=== PATIENT | female | born 1945 | race Caucasian/White ===

== ENCOUNTER → 2017-03-05 | Outpatient (CLI) | payer MEDICARE, MEDICAID ==
[~2017-03-05] MED LIST: ALBU18HF INH; ALEN70TA5 PO; ASPI-496 PO; ASPI-621 PO; ATOR40TA PO; ATOR40TA78 PO; CARV3.1212 PO; CARV3.122 PO; CIPR500T87 PO; HYDR-3240 PO; LEVO100T PO; LEVO100T5 PO; LEVO75TA5 PO; LOSA25TA5 PO; METR500T PO; OMNIPAQUE 350 MG/ML, 100ML BOTTLE ONE; OXYC-302 PO; PHEN-418 PO; SULF1TAB3 PO; TICA90TA PO; TRAM-28 PO
== END | disposition home or self-care (01) ==
LOC: CFH 13:16
PROVIDERS: ATTEND Urology
DX: C67.9 Malignant neoplasm of bladder, unspecified (principal); R31.0 Gross hematuria; D18.09 Hemangioma of other sites; R91.1 Solitary pulmonary nodule
CPT/HCPCS: 74177; Q9967

== ENCOUNTER → 2017-06-23 | Outpatient (CLI) | payer MEDICARE, MEDICAID ==
[2017-06-23 12:35] LABS: BLOOD UREA NITROGEN 19 mg/dL (7-18)
[2017-06-23 12:40] LABS: ASPARTATE AMINO TRANSFERASE 81 U/L (15-37)
== END | disposition home or self-care (01) ==
LOC: CFH 11:31
PROVIDERS: ATTEND Urology
DX: C67.8 Malignant neoplasm of overlapping sites of bladder (principal); C77.9 Secondary and unspecified malignant neoplasm of lymph node, unspecified; D18.03 Hemangioma of intra-abdominal structures; K86.1 Other chronic pancreatitis; R91.1 Solitary pulmonary nodule; J84.10 Pulmonary fibrosis, unspecified; Z90.49 Acquired absence of other specified parts of digestive tract
CPT/HCPCS: 36415; 71260; 74177; 80053; 82565; 85025; Q9967

== ENCOUNTER → 2017-07-14 | Outpatient (CLI) | payer MEDICARE, MEDICAID ==
[~2017-07-14] MED LIST changes: -OMNIPAQUE 350 MG/ML, 100ML BOTTLE ONE
== END | disposition home or self-care (01) ==
LOC: LAB 00:32
PROVIDERS: ATTEND Family Medicine
DX: E03.9 Hypothyroidism, unspecified (principal)
CPT/HCPCS: 36415; 84443

== ENCOUNTER → 2018-01-14 | Outpatient (CLI) | payer MEDICARE, MEDICAID ==
[~2018-01-14] MED LIST changes: +SULF-169 PO; -SULF1TAB3 PO; -TRAM-28 PO; +TRAM-47 PO
== END ==
LOC: LAB 15:37
PROVIDERS: ATTEND Family Medicine
DX: E03.9 Hypothyroidism, unspecified (principal)
CPT/HCPCS: 36415; 84443

== ENCOUNTER → 2018-01-14 | Outpatient (CLI) | payer MEDICARE, MEDICAID | LOC: LAB 15:40 | PROVIDERS: ATTEND Urology | DX: N39.0 Urinary tract infection, site not specified (principal) | CPT/HCPCS: 87077; 87086 ==

== ENCOUNTER 2018-05-17 15:28 | Inpatient (IN) | payer MEDICARE, MEDICAID ==
[~2018-05-17] VITALS: Ht 167.6 cm; Wt 72.2 kg
[~2018-05-17 15:28] MED LIST changes: +FURO-93 PO; +FURO40TA6 PO; +MORP100T16 PO
[2018-05-17] MEDS ORDERED: SODIUM CHLORIDE FLUSH 10ML SYR IVF ONE (16:00)
[2018-05-17 16:45] LABS: BASOPHILS # (AUTO) 0.09 x10^3/uL (0-0.1); BASOPHILS % (AUTO) 1 % (0-1); EOSINOPHILS # (AUTO) 0.01 x10^3/uL (0-0.4); EOSINOPHILS % (AUTO) 0 % (1-7); LYMPHOCYTES # (AUTO) 2.54 x10^3/uL (1-3.4); LYMPHOCYTES % (AUTO) 21 % (22-44); MD NO; MEAN CORPUSCULAR HEMOGLOBIN 29.5 pg (27.0-34.8); MEAN CORPUSCULAR HGB CONC 32.2 g/dL (32.4-35.8); MEAN CORPUSCULAR VOLUME 91.5 fL (80-100); MEAN PLATELET VOLUME 8.5 fL (7.4-10.4); MONOCYTES # (AUTO) 1.37 x10^3/uL (0.2-0.8); MONOCYTES % (AUTO) 11 % (2-9); NEUTROPHILS # (AUTO) 8.08 x10^3/uL (1.8-6.8); NEUTROPHILS % (AUTO) 67 % (42-75); PLATELET COUNT 315 x10^3/uL (130-400); RED BLOOD COUNT 4.61 x10^6/uL (3.82-5.3); RED CELL DISTRIBUTION WIDTH 19.6 % (9.6-15.2)
[2018-05-17 16:50] LABS: INTERNATIONAL NORMALIZED RATIO 1.15 (0.93-1.1); PROTHROMBIN TIME 11.8 Seconds (9.6-11.5)
[2018-05-17 16:57] LABS: ALANINE AMINOTRANSFERASE 15 U/L (12-78); ALBUMIN 3.2 g/dL (3.4-5.0); ANION GAP 9 mmol/L (5-15); CALCIUM 8.5 mg/dL (8.5-10.1); CHLORIDE 105 mmol/L (98-107); CREATININE 1.15 mg/dL (0.55-1.02)
[2018-05-17 17:02] LABS: ALKALINE PHOSPHATASE 205 U/L (45-117); BILIRUBIN,TOTAL 0.6 mg/dL (0.2-1.0)
[2018-05-17] MEDS ORDERED: HEPARIN 5,000 UNITS/ML, 1ML IV ONE (17:30)
[2018-05-17] MEDS ORDERED: HEPARIN 5,000 UNITS/ML, 1ML IV PRN ×2 (17:30→19:30)
[2018-05-17] MEDS ORDERED: HEPARIN 25,000 UNITS/500ML PMX 500 ML IV PRN ×2 (17:30→19:30)
[2018-05-17] MEDS ORDERED: HEPARIN 5,000 UNITS/ML, 1ML ONE (17:34)
[2018-05-17] MEDS ORDERED: HEPARIN 25,000 UNITS/500ML PMX 500 ML ONE (17:35)
[2018-05-17] MEDS ORDERED: morphine SULFATE 10 MG/ML, 1ML IVPush PRN (18:30)
[2018-05-17] MEDS ORDERED: ONDANSETRON 2MG/ML, 2ML IVPush PRN (18:30)
[2018-05-17] MEDS ORDERED: ACETAMINOPHEN 325 MG TABLET PO PRN (18:30)
[2018-05-17] MEDS ORDERED: FUROSEMIDE 20 MG/2 ML IV SCH (19:00)
[2018-05-17] MEDS ORDERED: ALBUTEROL SULFATE 2.5 MG/3 ML ONE (20:43)
[2018-05-17] MEDS: ALBUTEROL/IPRATROPIUM 2.5MG/0.5MG, 3 ML NPPB SCH (20:49)
[2018-05-17] MEDS ORDERED: ATORVASTATIN 40 MG TABLET PO SCH (21:00)
[2018-05-17] MEDS: CARVEDILOL 3.125 MG TABLET PO SCH (21:05)
[2018-05-17] MEDS: OXYcodone IR 5MG TABLET PO PRN (21:06)
[2018-05-18 01:39] VITALS: BP 144/82
[2018-05-18] MEDS: ALBUTEROL/IPRATROPIUM 2.5MG/0.5MG, 3 ML NPPB SCH (03:00)
[2018-05-18] MEDS: OXYcodone IR 5MG TABLET PO PRN ×2 (05:49→12:07)
[2018-05-18] MEDS: LEVOTHYROXINE 88 MCG TABLET PO SCH ×2 (05:50→08:34)
[2018-05-18 07:30] LABS: ANION GAP 7 mmol/L (5-15); BASOPHILS # (AUTO) 0.04 x10^3/uL (0-0.1); BASOPHILS % (AUTO) 1 % (0-1); CALCIUM 7.5 mg/dL (8.5-10.1); CHLORIDE 105 mmol/L (98-107); CREATININE 1.04 mg/dL (0.55-1.02); EOSINOPHILS # (AUTO) 0.01 x10^3/uL (0-0.4); EOSINOPHILS % (AUTO) 0 % (1-7); LYMPHOCYTES # (AUTO) 2.13 x10^3/uL (1-3.4); LYMPHOCYTES % (AUTO) 22 % (22-44); MD NO; MEAN CORPUSCULAR HEMOGLOBIN 29.7 pg (27.0-34.8); MEAN CORPUSCULAR HGB CONC 32.4 g/dL (32.4-35.8); MEAN CORPUSCULAR VOLUME 91.5 fL (80-100); MEAN PLATELET VOLUME 8.7 fL (7.4-10.4); MONOCYTES # (AUTO) 1.58 x10^3/uL (0.2-0.8); MONOCYTES % (AUTO) 16 % (2-9); NEUTROPHILS # (AUTO) 6.17 x10^3/uL (1.8-6.8); NEUTROPHILS % (AUTO) 62 % (42-75); PLATELET COUNT 347 x10^3/uL (130-400); RED BLOOD COUNT 3.78 x10^6/uL (3.82-5.3); RED CELL DISTRIBUTION WIDTH 19.6 % (9.6-15.2)
[2018-05-18 07:32] LABS: INTERNATIONAL NORMALIZED RATIO 1.22 (0.93-1.1); PROTHROMBIN TIME 12.5 Seconds (9.6-11.5)
[2018-05-18] MEDS ORDERED: POTASSIUM CHLORIDE 20 MEQ TAB.ER.PRT PO ONE (08:00)
[2018-05-18] MEDS ORDERED: POTASSIUM CHLORIDE 20 MEQ TAB.ER.PRT PO SCH ×2 (08:00→17:00)
[2018-05-18] MEDS ORDERED: ENOXAPARIN 80 MG/0.8 ML SQ SCH (08:00)
[2018-05-18 08:11] VITALS: BP 143/73
[2018-05-18] MEDS: CARVEDILOL 3.125 MG TABLET PO SCH (08:35)
[2018-05-18] MEDS ORDERED: FUROSEMIDE 40 MG TABLET PO SCH (09:00)
[2018-05-18] MEDS ORDERED: ASPIRIN 81 MG TABLET EC PO SCH (09:00)
[2018-05-18] MEDS ORDERED: LEVOTHYROXINE 88 MCG TABLET PO SCH (09:00)
[2018-05-18] MEDS ORDERED: SPIRONOLACTONE 25 MG TABLET PO SCH (09:00)
[2018-05-18] MEDS ORDERED: LOSARTAN 25MG TABLET PO SCH (09:00)
[2018-05-18] MEDS ORDERED: POTA20TA6 PO (11:07)
[2018-05-18] MEDS ORDERED: ENOX80SY4 SQ (11:07)
[2018-05-18] MEDS ORDERED: SPIR25TA PO (11:07)
[2018-05-18 13:32] VITALS: BP 119/69
== END 2018-05-18 17:35 | disposition home or self-care (01) | DRG 315 ==
LOC: ED 18:18 → 3NW 18:58
PROVIDERS: ADMIT Family Medicine; ATTEND Family Medicine
DX: T82.868A Thrombosis due to vascular prosthetic devices, implants and grafts, initial encounter (principal); I50.20 Unspecified systolic (congestive) heart failure; I13.0 Hypertensive heart and chronic kidney disease with heart failure and stage 1 through stage 4 chronic kidney disease, or unspecified chronic kidney disease; D68.59 Other primary thrombophilia; I82.C11 Acute embolism and thrombosis of right internal jugular vein; I82.B11 Acute embolism and thrombosis of right subclavian vein; Y83.8 Other surgical procedures as the cause of abnormal reaction of the patient, or of later complication, without mention of misadventure at the time of the procedure; Y92.89 Other specified places as the place of occurrence of the external cause; R19.00 Intra-abdominal and pelvic swelling, mass and lump, unspecified site; N18.9 Chronic kidney disease, unspecified; C67.9 Malignant neoplasm of bladder, unspecified; E03.9 Hypothyroidism, unspecified; F17.210 Nicotine dependence, cigarettes, uncomplicated; I25.2 Old myocardial infarction; J44.9 Chronic obstructive pulmonary disease, unspecified; Z66 Do not resuscitate; Z79.899 Other long term (current) drug therapy; Z85.3 Personal history of malignant neoplasm of breast; Z85.72 Personal history of non-Hodgkin lymphomas
CPT/HCPCS: 36415; 70360; 71045; 80048; 80053; 83880; 84443; 85025; 85520; 85610; 85730; 93005; 93970; 94640; 96374; J1644; J1650; J7620; J1940; J2270

== ENCOUNTER 2018-06-10 18:04 | Inpatient (IN) | payer MEDICARE, MEDICAID ==
[~2018-06-10] VITALS: Ht 167.6 cm; Wt 71.3 kg
[2018-06-10] MEDS ORDERED: HEPARIN 5,000 UNITS/ML, 1ML IV ONE (18:30)
[2018-06-10] MEDS ORDERED: PLEASE ENTER HEIGHT AND WEIGHT MC SCH (18:30)
[2018-06-10] MEDS ORDERED: MORPHINE SULFATE 4 MG/ML, 1ML IVPush PRN (18:30)
[2018-06-10] MEDS ORDERED: HEPARIN 25,000 UNITS/500ML PMX 500 ML IV PRN (18:30)
[2018-06-10] MEDS ORDERED: SODIUM CHLORIDE FLUSH 10ML SYR IVF ONE (18:30)
[2018-06-10] MEDS ORDERED: HEPARIN 5,000 UNITS/ML, 1ML IV PRN (18:30)
[2018-06-10 19:19] LABS: INTERNATIONAL NORMALIZED RATIO 1.18 (0.93-1.1); PROTHROMBIN TIME 12.2 Seconds (9.6-11.5)
[2018-06-10 19:20] LABS: MEAN CORPUSCULAR HEMOGLOBIN 29.5 pg (27.0-34.8); MEAN CORPUSCULAR HGB CONC 32.4 g/dL (32.4-35.8); MEAN PLATELET VOLUME 8.7 fL (7.4-10.4); PLATELET COUNT 475 x10^3/uL (130-400); RED BLOOD COUNT 3.44 x10^6/uL (3.82-5.3); RED CELL DISTRIBUTION WIDTH 19.9 % (9.6-15.2)
[2018-06-10 19:22] LABS: ALANINE AMINOTRANSFERASE 9 U/L (12-78); ANION GAP 8 mmol/L (5-15); CALCIUM 8.4 mg/dL (8.5-10.1); CHLORIDE 106 mmol/L (98-107)
[2018-06-10 19:26] LABS: ALKALINE PHOSPHATASE 124 U/L (45-117); BILIRUBIN,TOTAL 0.4 mg/dL (0.2-1.0); TOTAL PROTEIN 7.3 g/dL (6.4-8.2)
[2018-06-10 19:51] LABS: BASOPHILS # (AUTO) 0.04 x10^3/uL (0-0.1); BASOPHILS % (AUTO) 0 % (0-1); EOSINOPHILS # (AUTO) 0.05 x10^3/uL (0-0.4); EOSINOPHILS % (AUTO) 0 % (1-7); LYMPHOCYTES # (AUTO) 1.56 x10^3/uL (1-3.4); LYMPHOCYTES % (AUTO) 13 % (22-44); MD MORPH REVIEW ONLY; MONOCYTES # (AUTO) 0.68 x10^3/uL (0.2-0.8); MONOCYTES % (AUTO) 6 % (2-9); NEUTROPHILS % (AUTO) 81 % (42-75)
[2018-06-10 19:52] LABS: <PLATELET ESTIMATE> INCREASED; ANISOCYTOSIS 1+; LARGE PLATELETS 1+; POLYCHROMASIA 1+
[2018-06-10] MEDS ORDERED: OXYcodone IR 5MG TABLET PO PRN (20:30)
[2018-06-10] MEDS ORDERED: ONDANSETRON ODT 4 MG PO PRN (20:30)
[2018-06-10] MEDS ORDERED: POLYETHYLENE GLYCOL 17 GM PACKET PO PRN (20:30)
[2018-06-10] MEDS: FUROSEMIDE 40 MG TABLET PO SCH (21:13)
[2018-06-10] MEDS: ATORVASTATIN 40 MG TABLET PO SCH (21:13)
[2018-06-10] MEDS: morphine SULFATE 10 MG/ML, 1ML IVPush PRN (21:13)
[2018-06-10] MEDS: CARVEDILOL 3.125 MG TABLET PO SCH (21:13)
[2018-06-10] MEDS: NICOTINE 14MG/24 HR PATCH.TD24 TD SCH (21:20)
[2018-06-10 22:13] VITALS: BP 120/77
[2018-06-10 22:56] LABS: MICROSCOPIC NOT IND
[2018-06-10 23:09] LABS: CULTURE INDICATED? NO
[2018-06-10] MEDS: morphine SULFATE 100 MG TABLET.ER PO SCH (23:29)
[2018-06-11 01:52] VITALS: BP 109/70
[2018-06-11 03:52] LABS: MEAN CORPUSCULAR HEMOGLOBIN 29.6 pg (27.0-34.8); MEAN CORPUSCULAR HGB CONC 32.5 g/dL (32.4-35.8); MEAN CORPUSCULAR VOLUME 91.2 fL (80-100); MEAN PLATELET VOLUME 8.6 fL (7.4-10.4); PLATELET COUNT 477 x10^3/uL (130-400); RED BLOOD COUNT 2.94 x10^6/uL (3.82-5.3); RED CELL DISTRIBUTION WIDTH 19.8 % (9.6-15.2)
[2018-06-11 04:00] LABS: ANION GAP 8 mmol/L (5-15); CALCIUM 7.6 mg/dL (8.5-10.1); CHLORIDE 107 mmol/L (98-107); CREATININE 1.41 mg/dL (0.55-1.02)
[2018-06-11 04:04] LABS: ANISOCYTOSIS 1+; BASOPHILS # (AUTO) 0.04 x10^3/uL (0-0.1); BASOPHILS % (AUTO) 0 % (0-1); EOSINOPHILS # (AUTO) 0.02 x10^3/uL (0-0.4); EOSINOPHILS % (AUTO) 0 % (1-7); LYMPHOCYTES # (AUTO) 1.75 x10^3/uL (1-3.4); LYMPHOCYTES % (AUTO) 14 % (22-44); MD MORPH REVIEW ONLY; MONOCYTES # (AUTO) 0.72 x10^3/uL (0.2-0.8); MONOCYTES % (AUTO) 6 % (2-9); NEUTROPHILS # (AUTO) 10.13 x10^3/uL (1.8-6.8); NEUTROPHILS % (AUTO) 80 % (42-75); POLYCHROMASIA 1+
[2018-06-11 04:05] LABS: <PLATELET ESTIMATE> INCREASED; LARGE PLATELETS 1+
[2018-06-11] MEDS: morphine SULFATE 100 MG TABLET.ER PO SCH ×4 (04:40→23:36)
[2018-06-11] MEDS ORDERED: BISACODYL 10 MG SUPP PR PRN (07:30)
[2018-06-11 07:35] VITALS: BP 129/84
[2018-06-11] MEDS: SENNA/DOCUSATE TABLET PO SCH (08:36)
[2018-06-11] MEDS: ASPIRIN 81 MG TABLET EC PO SCH (08:36)
[2018-06-11] MEDS: LEVOTHYROXINE 100 MCG TABLET PO SCH (08:36)
[2018-06-11] MEDS: SPIRONOLACTONE 25 MG TABLET PO SCH (08:37)
[2018-06-11] MEDS: FUROSEMIDE 40 MG TABLET PO SCH ×2 (08:37→20:45)
[2018-06-11] MEDS: CARVEDILOL 3.125 MG TABLET PO SCH ×3 (08:37→21:00)
[2018-06-11 13:25] VITALS: BP 130/63
[2018-06-11] MEDS: POTASSIUM CHLORIDE 20 MEQ TAB.ER.PRT PO SCH (16:33)
[2018-06-11] MEDS: ENOXAPARIN 80 MG/0.8 ML SQ SCH (16:33)
[2018-06-11 19:33] VITALS: BP 94/55
[2018-06-11 20:38] VITALS: BP 111/69
[2018-06-11] MEDS: NICOTINE 14MG/24 HR PATCH.TD24 TD SCH (20:44)
[2018-06-11] MEDS: ATORVASTATIN 40 MG TABLET PO SCH (20:44)
[2018-06-12 01:43] VITALS: BP 102/58
[2018-06-12 04:23] LABS: MEAN CORPUSCULAR HEMOGLOBIN 29.9 pg (27.0-34.8); MEAN CORPUSCULAR HGB CONC 32.9 g/dL (32.4-35.8); MEAN CORPUSCULAR VOLUME 90.9 fL (80-100); MEAN PLATELET VOLUME 8.7 fL (7.4-10.4); PLATELET COUNT 435 x10^3/uL (130-400); RED BLOOD COUNT 2.52 x10^6/uL (3.82-5.3); RED CELL DISTRIBUTION WIDTH 19.8 % (9.6-15.2)
[2018-06-12] MEDS: ENOXAPARIN 80 MG/0.8 ML SQ SCH ×3 (04:30→16:44)
[2018-06-12] MEDS: morphine SULFATE 100 MG TABLET.ER PO SCH ×4 (05:29→20:48)
[2018-06-12 06:08] LABS: BASOPHILS % (AUTO) 0 % (0-1); EOSINOPHILS % (AUTO) 0 % (1-7); LYMPHOCYTES # (AUTO) 1.22 x10^3/uL (1-3.4); LYMPHOCYTES % (AUTO) 7 % (22-44); MD SCAN; MONOCYTES # (AUTO) 0.43 x10^3/uL (0.2-0.8); MONOCYTES % (AUTO) 2 % (2-9); NEUTROPHILS # (AUTO) 16.89 x10^3/uL (1.8-6.8); NEUTROPHILS % (AUTO) 91 % (42-75)
[2018-06-12 08:27] VITALS: BP 100/65
[2018-06-12] MEDS: CARVEDILOL 3.125 MG TABLET PO SCH ×3 (09:00→20:48)
[2018-06-12] MEDS: SENNA/DOCUSATE TABLET PO SCH (09:00)
[2018-06-12] MEDS: FUROSEMIDE 40 MG TABLET PO SCH ×2 (09:12→20:50)
[2018-06-12] MEDS: ASPIRIN 81 MG TABLET EC PO SCH (09:12)
[2018-06-12] MEDS: SPIRONOLACTONE 25 MG TABLET PO SCH (09:12)
[2018-06-12] MEDS: LEVOTHYROXINE 100 MCG TABLET PO SCH (09:13)
[2018-06-12] MEDS: POTASSIUM CHLORIDE 20 MEQ TAB.ER.PRT PO SCH (09:13)
[2018-06-12 10:26] LABS: OCCULT BLOOD POSITIVE (NEGATIVE)
[2018-06-12 10:48] LABS: CLOSTRIDIUM DIFFICILE ANTIGEN NEGATIVE; CLOSTRIDIUM DIFFICILE TOXIN NEGATIVE (Negative)
[2018-06-12] MEDS: HYDROcodone/APAP 5/325 TABLET PO PRN (11:57)
[2018-06-12 14:10] VITALS: BP 102/67
[2018-06-12] MEDS ORDERED: HOLD MEDICATION MC PRN (19:00)
[2018-06-12 19:25] LABS: MEAN CORPUSCULAR VOLUME 90.9 fL (80-100); MEAN PLATELET VOLUME 8.8 fL (7.4-10.4); PLATELET COUNT 433 x10^3/uL (130-400); RED BLOOD COUNT 2.37 x10^6/uL (3.82-5.3)
[2018-06-12 19:29] VITALS: BP 112/69
[2018-06-12 20:18] LABS: BASOPHILS # (AUTO) 0.01 x10^3/uL (0-0.1); BASOPHILS % (AUTO) 0 % (0-1); EOSINOPHILS % (AUTO) 0 % (1-7); LYMPHOCYTES # (AUTO) 1.23 x10^3/uL (1-3.4); LYMPHOCYTES % (AUTO) 6 % (22-44); MD SCAN; MONOCYTES # (AUTO) 0.67 x10^3/uL (0.2-0.8); MONOCYTES % (AUTO) 3 % (2-9); NEUTROPHILS # (AUTO) 20.32 x10^3/uL (1.8-6.8); NEUTROPHILS % (AUTO) 91 % (42-75)
[2018-06-12] MEDS: ATORVASTATIN 40 MG TABLET PO SCH (20:48)
[2018-06-12] MEDS: NICOTINE 14MG/24 HR PATCH.TD24 TD SCH (20:53)
[2018-06-13] VITALS (7 sets, daily range): BP systolic 101–134; BP diastolic 59–77
[2018-06-13 02:07] LABS: MEAN CORPUSCULAR HEMOGLOBIN 29.9 pg (27.0-34.8); MEAN CORPUSCULAR HGB CONC 32.8 g/dL (32.4-35.8); MEAN PLATELET VOLUME 8.8 fL (7.4-10.4); PLATELET COUNT 483 x10^3/uL (130-400); RED BLOOD COUNT 2.38 x10^6/uL (3.82-5.3); RED CELL DISTRIBUTION WIDTH 19.9 % (9.6-15.2)
[2018-06-13 02:21] LABS: BASOPHILS # (AUTO) 0.01 x10^3/uL (0-0.1); BASOPHILS % (AUTO) 0 % (0-1); EOSINOPHILS % (AUTO) 0 % (1-7); LYMPHOCYTES # (AUTO) 1.11 x10^3/uL (1-3.4); LYMPHOCYTES % (AUTO) 5 % (22-44); MD MORPH REVIEW ONLY; MONOCYTES % (AUTO) 4 % (2-9); NEUTROPHILS # (AUTO) 21.35 x10^3/uL (1.8-6.8); NEUTROPHILS % (AUTO) 92 % (42-75)
[2018-06-13 02:34] LABS: ANISOCYTOSIS 1+
[2018-06-13 02:35] LABS: HYPOCHROMIA 1+; POLYCHROMASIA 1+; TOXIC GRAN 1+
[2018-06-13 02:36] LABS: <PLATELET ESTIMATE> INCREASED; LARGE PLATELETS 1+
[2018-06-13] MEDS: morphine SULFATE 100 MG TABLET.ER PO SCH ×4 (02:38→21:27)
[2018-06-13 05:42] LABS: MEAN CORPUSCULAR HEMOGLOBIN 29.3 pg (27.0-34.8); MEAN CORPUSCULAR HGB CONC 32.3 g/dL (32.4-35.8); MEAN CORPUSCULAR VOLUME 90.7 fL (80-100); MEAN PLATELET VOLUME 8.7 fL (7.4-10.4); PLATELET COUNT 482 x10^3/uL (130-400); RED BLOOD COUNT 2.32 x10^6/uL (3.82-5.3); RED CELL DISTRIBUTION WIDTH 20.2 % (9.6-15.2)
[2018-06-13 06:16] LABS: MD YES
[2018-06-13 06:19] LABS: ANISOCYTOSIS 1+; BAND#(MANUAL) 1.49 x10^3/uL; BANDS%(MANUAL) 7 % (0-7); HYPOCHROMIA 1+; LYMPH#(MANUAL) 1.49 x10^3/uL (1-3.4); LYMPHS% (MANUAL) 7 % (22-44); MONOS#(MANUAL) 0.43 x10^3/uL (0.3-2.7); MONOS% (MANUAL) 2 % (2-9); POLYCHROMASIA 1+; SEG#(MANUAL) 17.89 x10^3/uL (1.8-6.8); SEGS% (MANUAL) 84 % (42-75)
[2018-06-13 06:20] LABS: <PLATELET ESTIMATE> INCREASED; LARGE PLATELETS 1+
[2018-06-13] MEDS: SPIRONOLACTONE 25 MG TABLET PO SCH (08:11)
[2018-06-13] MEDS: CARVEDILOL 3.125 MG TABLET PO SCH ×2 (08:12→21:27)
[2018-06-13] MEDS: FUROSEMIDE 40 MG TABLET PO SCH ×2 (08:12→21:27)
[2018-06-13] MEDS: SENNA/DOCUSATE TABLET PO SCH (08:13)
[2018-06-13] MEDS: ASPIRIN 81 MG TABLET EC PO SCH (08:13)
[2018-06-13] MEDS: LEVOTHYROXINE 100 MCG TABLET PO SCH (08:14)
[2018-06-13 15:25] LABS: MEAN CORPUSCULAR HEMOGLOBIN 29.6 pg (27.0-34.8); MEAN CORPUSCULAR HGB CONC 32.8 g/dL (32.4-35.8); MEAN CORPUSCULAR VOLUME 90.1 fL (80-100); MEAN PLATELET VOLUME 8.2 fL (7.4-10.4); PLATELET COUNT 440 x10^3/uL (130-400); RED BLOOD COUNT 2.58 x10^6/uL (3.82-5.3)
[2018-06-13 15:43] LABS: MD YES
[2018-06-13 15:45] LABS: ANISOCYTOSIS 1+; BAND#(MANUAL) 2.91 x10^3/uL; BANDS%(MANUAL) 15 % (0-7); LYMPH#(MANUAL) 1.36 x10^3/uL (1-3.4); LYMPHS% (MANUAL) 7 % (22-44); MONOS#(MANUAL) 1.16 x10^3/uL (0.3-2.7); MONOS% (MANUAL) 6 % (2-9); NRBC % (MANUAL) 1 % (0-1); SEG#(MANUAL) 13.97 x10^3/uL (1.8-6.8); SEGS% (MANUAL) 72 % (42-75)
[2018-06-13 15:46] LABS: POLYCHROMASIA 1+
[2018-06-13 15:48] LABS: <PLATELET ESTIMATE> INCREASED; LARGE PLATELETS 1+; TOXIC GRAN 1+
[2018-06-13] MEDS: POTASSIUM CHLORIDE 20 MEQ TAB.ER.PRT PO SCH ×2 (17:45→17:54)
[2018-06-13] MEDS: ENOXAPARIN 80 MG/0.8 ML SQ SCH ×2 (17:45→17:54)
[2018-06-13] MEDS: ATORVASTATIN 40 MG TABLET PO SCH (21:27)
[2018-06-13] MEDS: NICOTINE 14MG/24 HR PATCH.TD24 TD SCH (21:27)
[2018-06-14 03:17] VITALS: BP 102/62
[2018-06-14] MEDS: HYDROcodone/APAP 5/325 TABLET PO PRN (03:36)
[2018-06-14] MEDS: morphine SULFATE 100 MG TABLET.ER PO SCH ×5 (03:36→20:26)
[2018-06-14 04:31] LABS: MEAN CORPUSCULAR HEMOGLOBIN 29.8 pg (27.0-34.8); MEAN CORPUSCULAR HGB CONC 32.9 g/dL (32.4-35.8); MEAN CORPUSCULAR VOLUME 90.6 fL (80-100); MEAN PLATELET VOLUME 8.5 fL (7.4-10.4); PLATELET COUNT 468 x10^3/uL (130-400); RED BLOOD COUNT 2.48 x10^6/uL (3.82-5.3); RED CELL DISTRIBUTION WIDTH 19.1 % (9.6-15.2)
[2018-06-14 04:35] LABS: ALANINE AMINOTRANSFERASE 21 U/L (12-78); ALBUMIN 1.7 g/dL (3.4-5.0); ANION GAP 12 mmol/L (5-15); CALCIUM 7.1 mg/dL (8.5-10.1); CHLORIDE 105 mmol/L (98-107); CREATININE 3.62 mg/dL (0.55-1.02)
[2018-06-14 04:37] LABS: ALKALINE PHOSPHATASE 114 U/L (45-117); BILIRUBIN,TOTAL 0.5 mg/dL (0.2-1.0); TOTAL PROTEIN 6.2 g/dL (6.4-8.2)
[2018-06-14 05:48] LABS: MD YES
[2018-06-14 05:50] LABS: ANISOCYTOSIS 1+; BAND#(MANUAL) 2.84 x10^3/uL; BANDS%(MANUAL) 20 % (0-7); LYMPH#(MANUAL) 0.71 x10^3/uL (1-3.4); LYMPHS% (MANUAL) 5 % (22-44); METAMYELOCYTES# (MANUAL) 0.28 x10^3/uL (0-0); METAMYELOCYTES% (MANUAL) 2 % (0-1); POLYCHROMASIA 1+; SEG#(MANUAL) 10.37 x10^3/uL (1.8-6.8); SEGS% (MANUAL) 73 % (42-75)
[2018-06-14 05:51] LABS: <PLATELET ESTIMATE> INCREASED; <PLT MORPHOLOGY> NORMAL PLT MORPH; TOXIC GRAN 1+
[2018-06-14] MEDS ORDERED: SODIUM CHLORIDE 0.9%, 500ML IVBOLUS ONE (06:30)
[2018-06-14 07:27] VITALS: BP 96/58
[2018-06-14] MEDS: SODIUM CHLORIDE 0.9% 1,000 ML IV SCH ×2 (07:33→17:34)
[2018-06-14] MEDS: SENNA/DOCUSATE TABLET PO SCH (07:39)
[2018-06-14] MEDS: LEVOTHYROXINE 100 MCG TABLET PO SCH (07:48)
[2018-06-14 08:56] VITALS: BP 104/65
[2018-06-14] MEDS: SPIRONOLACTONE 25 MG TABLET PO SCH (09:00)
[2018-06-14] MEDS: FUROSEMIDE 40 MG TABLET PO SCH ×2 (09:00→19:39)
[2018-06-14] MEDS: CARVEDILOL 3.125 MG TABLET PO SCH ×2 (09:16→20:27)
[2018-06-14] MEDS: ASPIRIN 81 MG TABLET EC PO SCH (09:16)
[2018-06-14] MEDS ORDERED: LOPERAMIDE 1 MG/5 ML, 10ML UDC PO PRN (14:00)
[2018-06-14] MEDS ORDERED: LIDOCAINE-MPF 2% ,5ML ONE (15:08)
[2018-06-14 15:51] VITALS: BP 98/56
[2018-06-14] MEDS: POTASSIUM CHLORIDE 20 MEQ TAB.ER.PRT PO SCH (16:40)
[2018-06-14] MEDS: morphine SULFATE 10 MG/ML, 1ML IVPush PRN ×3 (18:27→23:27)
[2018-06-14 19:25] VITALS: BP 128/74
[2018-06-14] MEDS: HYDROmorphone 2 MG/ML, 1ML IVPush PRN ×2 (19:33→20:20)
[2018-06-14] MEDS: NICOTINE 14MG/24 HR PATCH.TD24 TD SCH (20:26)
[2018-06-14] MEDS: ATORVASTATIN 40 MG TABLET PO SCH (20:26)
[2018-06-14] MEDS ORDERED: HYDROmorphone 2 MG/ML, 1ML IVPush PRN (23:45)
[2018-06-15] MEDS ORDERED: PROCHLORPERAZINE 25 MG SUPP PR PRN (00:30)
[2018-06-15] MEDS ORDERED: morphine SULFATE ORAL.CONC 20 MG/ML BC PRN (00:30)
[2018-06-15] MEDS ORDERED: LORazepam 2 MG/ML, 1ML IVPush PRN (00:30)
[2018-06-15] MEDS ORDERED: LORazepam INTENSOL 2 MG/ML SL PRN (00:30)
[2018-06-15] MEDS ORDERED: SCOPOLAMINE PATCH, 1.5MG PATCH.TD72 TD PRN (00:30)
[2018-06-15] MEDS ORDERED: HYDROmorphone 1 MG/ML, 1ML IVPush PRN (00:30)
[2018-06-15] MEDS ORDERED: morphine SULFATE 100 MG TABLET.ER PO SCH (02:00)
[2018-06-15] MEDS: morphine SULFATE 100 MG TABLET.ER PO SCH ×2 (03:00→09:46)
[2018-06-15] MEDS ORDERED: LEVOTHYROXINE 100 MCG TABLET PO SCH (06:00)
[2018-06-15 09:19] VITALS: BP 103/68
== END 2018-06-15 15:38 | disposition hospice, home (50) | DRG 393 ==
LOC: ED 18:33 → EDIP 19:32 → 3NW 20:05 → EDIP 20:05 → UNDODISIN 06-15 11:23
PROVIDERS: ADMIT Family Medicine; ATTEND Family Medicine
PROC: 30233N1 Transfusion of Nonautologous Red Blood Cells into Peripheral Vein, Percutaneous Approach (ICD-10-PCS; principal; 2018-06-13)
PROC: 0Y9F3ZZ Drainage of Right Knee Region, Percutaneous Approach (ICD-10-PCS; 2018-06-14)
DX: K55.9 Vascular disorder of intestine, unspecified (principal); E43 Unspecified severe protein-calorie malnutrition; I82.412 Acute embolism and thrombosis of left femoral vein; D68.69 Other thrombophilia; C78.6 Secondary malignant neoplasm of retroperitoneum and peritoneum; K92.2 Gastrointestinal hemorrhage, unspecified; M71.21 Synovial cyst of popliteal space [Baker], right knee; D64.9 Anemia, unspecified; E03.9 Hypothyroidism, unspecified; E78.5 Hyperlipidemia, unspecified; I25.10 Atherosclerotic heart disease of native coronary artery without angina pectoris; I50.9 Heart failure, unspecified; M10.9 Gout, unspecified; I11.0 Hypertensive heart disease with heart failure; J44.9 Chronic obstructive pulmonary disease, unspecified; K63.89 Other specified diseases of intestine; Z51.5 Encounter for palliative care; Z66 Do not resuscitate; Z85.3 Personal history of malignant neoplasm of breast; Z85.51 Personal history of malignant neoplasm of bladder; Z85.72 Personal history of non-Hodgkin lymphomas; Z86.718 Personal history of other venous thrombosis and embolism; Z90.710 Acquired absence of both cervix and uterus; Z90.10 Acquired absence of unspecified breast and nipple; I25.2 Old myocardial infarction; Z79.82 Long term (current) use of aspirin; Z79.899 Other long term (current) drug therapy; Z88.5 Allergy status to narcotic agent; Z87.891 Personal history of nicotine dependence; Z68.25 Body mass index [BMI] 25.0-25.9, adult
CPT/HCPCS: 20610; 20611; 36415; 36430; 71045; 74176; 80048; 80053; 81003; 82272; 83605; 83690; 83880; 85025; 85520; 85610; 85730; 86850; 86900; 86923; 87324; 93005; J1170; J1644; J1650; J2270; J3490; Q0162; J2060; J7030; J7040; P9016

== ENCOUNTER → 2018-06-10 | Outpatient (CLI) | payer MEDICARE, MEDICAID ==
[~2018-06-10] MED LIST changes: +ENOX80SY4 SQ; +POTA20TA6 PO; +SPIR25TA PO
== END | disposition home or self-care (01) ==
LOC: RAD 15:17
PROVIDERS: ATTEND Specialist
DX: C67.4 Malignant neoplasm of posterior wall of bladder (principal); I82.403 Acute embolism and thrombosis of unspecified deep veins of lower extremity, bilateral; G89.29 Other chronic pain; R60.9 Edema, unspecified
CPT/HCPCS: 93970

== ENCOUNTER 2018-06-15 11:19 | Inpatient (IN) | payer MEDICAID, MEDICARE, OTHER ==
[~2018-06-15] VITALS: Ht 165.1 cm; Wt 71.3 kg
[2018-06-15] MEDS ORDERED: LORazepam 2 MG/ML, 1ML ONE (13:11)
[2018-06-15] MEDS: LORazepam 2 MG/ML, 1ML IVPush PRN ×2 (13:15→17:33)
[2018-06-15] MEDS ORDERED: PLEASE ENTER HEIGHT AND WEIGHT MC SCH (13:29)
[2018-06-15] MEDS ORDERED: MORPHINE SULFATE 4 MG/ML, 1ML IVPush PRN ×2 (15:30)
[2018-06-15] MEDS ORDERED: ATROPINE OPHTH SOLN 1%, 5ML BC PRN (15:30)
[2018-06-15] MEDS ORDERED: SCOPOLAMINE PATCH, 1.5MG PATCH.TD72 TD PRN (15:30)
[2018-06-15] MEDS ORDERED: ONDANSETRON 2MG/ML, 2ML IVPush PRN (16:00)
== END 2018-06-15 18:44 | disposition expired | DRG 374 ==
LOC: UNDOADMIN 11:19 → 3NW 11:19 → UNDODISIN 18:44
PROVIDERS: ADMIT Internal Medicine; ATTEND Internal Medicine
DX: C76.2 Malignant neoplasm of abdomen (principal); K55.059 Acute (reversible) ischemia of intestine, part and extent unspecified; N17.0 Acute kidney failure with tubular necrosis; E43 Unspecified severe protein-calorie malnutrition; C80.0 Disseminated malignant neoplasm, unspecified; I82.402 Acute embolism and thrombosis of unspecified deep veins of left lower extremity; D68.59 Other primary thrombophilia; D62 Acute posthemorrhagic anemia; G89.3 Neoplasm related pain (acute) (chronic); C67.9 Malignant neoplasm of bladder, unspecified; I25.10 Atherosclerotic heart disease of native coronary artery without angina pectoris; M71.20 Synovial cyst of popliteal space [Baker], unspecified knee; I10 Essential (primary) hypertension; F41.9 Anxiety disorder, unspecified; E03.9 Hypothyroidism, unspecified; E78.5 Hyperlipidemia, unspecified; D72.829 Elevated white blood cell count, unspecified; Z51.5 Encounter for palliative care; Z66 Do not resuscitate; Z79.891 Long term (current) use of opiate analgesic; Z82.0 Family history of epilepsy and other diseases of the nervous system; Z82.49 Family history of ischemic heart disease and other diseases of the circulatory system; Z85.3 Personal history of malignant neoplasm of breast; Z85.51 Personal history of malignant neoplasm of bladder; Z85.72 Personal history of non-Hodgkin lymphomas; Z86.718 Personal history of other venous thrombosis and embolism; Z90.10 Acquired absence of unspecified breast and nipple; Z90.710 Acquired absence of both cervix and uterus; Z88.5 Allergy status to narcotic agent; Z68.26 Body mass index [BMI] 26.0-26.9, adult
CPT/HCPCS: J2060